=== PATIENT | female | born 1955 | race African-American/Black ===

== ENCOUNTER 2018-05-22 16:24 | Emergency (ER) | payer OTHER ==
[~2018-05-22] VITALS: Ht 175.3 cm; Wt 88.5 kg
[2018-05-22 16:32] VITALS: Ht 175.3 cm; Wt 88.5 kg
[2018-05-22 17:04] LABS: BASOPHIL % 1.1 % (0-2); PLATELET COUNT 298 x10^3mcL (130-400); RED CELL DISTRIBUTION WIDTH 13.8 % (11.5-14.5)
[2018-05-22 17:09] LABS: CALCIUM 9.2 mg/dL (8.5-10.1); CARBON DIOXIDE 29.4 mmol/L (21-32); CHLORIDE SERUM 102 mmol/L (98-107); CREATININE SERUM 0.8 mg/dL (0.6-1.0); GFR1 > 60 mL/min; GLUCOSE SERUM 93 mg/dL (74-106); POTASSIUM SERUM 3.7 mmol/L (3.5-5.1); SODIUM SERUM 138 mmol/L (136-145)
[2018-05-22 18:07] VITALS: BP 139/78
== END 2018-05-22 18:07 | disposition home or self-care (01) ==
LOC: ED 16:24
PROVIDERS: Emergency Medicine
DX: R42 Dizziness and giddiness (principal); I10 Essential (primary) hypertension; E11.9 Type 2 diabetes mellitus without complications; E78.00 Pure hypercholesterolemia, unspecified; G56.00 Carpal tunnel syndrome, unspecified upper limb
CPT/HCPCS: 36415

== ENCOUNTER 2018-10-21 15:33 | Emergency (ER) | payer OTHER ==
[~2018-10-21] VITALS: Ht 175.3 cm; Wt 101.2 kg
[2018-10-21 16:23] VITALS: Ht 175.3 cm; Wt 101.2 kg
[2018-10-21 19:30] VITALS: BP 135/67
== END 2018-10-21 19:30 | disposition home or self-care (01) ==
LOC: ED 15:33
DX: R21 Rash and other nonspecific skin eruption (principal); T78.1XXA Other adverse food reactions, not elsewhere classified, initial encounter; X58.XXXA Exposure to other specified factors, initial encounter; I10 Essential (primary) hypertension; E11.9 Type 2 diabetes mellitus without complications; G56.00 Carpal tunnel syndrome, unspecified upper limb; E78.00 Pure hypercholesterolemia, unspecified
CPT/HCPCS: J7512; Q0163